=== PATIENT | female | born 1950 ===

== ENCOUNTER 2018-10-09 02:23 | Outpatient (CLI) | payer MEDICARE, OTHER | END 2018-10-09 23:59 | disposition home or self-care (01) | LOC: DIABETIC 02:23 | PROVIDERS: ATTEND Family Medicine | DX: E11.9 Type 2 diabetes mellitus without complications (principal); Z79.84 Long term (current) use of oral hypoglycemic drugs; Z88.8 Allergy status to other drugs, medicaments and biological substances | CPT/HCPCS: G0108 ==

== ENCOUNTER 2018-11-07 03:15 | Outpatient (CLI) | payer MEDICARE, OTHER | END 2018-11-07 23:59 | disposition home or self-care (01) | LOC: DIABETIC 03:15 | PROVIDERS: ATTEND Family Medicine | DX: E11.9 Type 2 diabetes mellitus without complications (principal); Z71.3 Dietary counseling and surveillance | CPT/HCPCS: G0108 ==

== ENCOUNTER 2019-02-08 04:29 | Outpatient (CLI) | payer MEDICARE, OTHER | END 2019-02-08 23:59 | disposition home or self-care (01) | LOC: DIABETIC 04:29 | PROVIDERS: ATTEND Family Medicine | DX: E11.9 Type 2 diabetes mellitus without complications (principal); I10 Essential (primary) hypertension; E78.5 Hyperlipidemia, unspecified; Z79.899 Other long term (current) drug therapy; Z88.8 Allergy status to other drugs, medicaments and biological substances | CPT/HCPCS: G0108 ==